=== PATIENT | female | born 1960 | race Caucasian/White ===

== ENCOUNTER 2016-10-13 09:50 | Emergency (ER) | payer BC ==
[~2016-10-13] VITALS: Ht 175.3 cm; Wt 80.7 kg
[2016-10-13 09:50] VITALS: BP 122/74; PULSE 58; RESP 15; TEMP 97.2; O2SAT 99
--- NOTE | 2016-10-13 09:50 | NUR ---
Pt to bed 8, placed in gown for evaluation
--- NOTE | 2016-10-13 10:05 | NUR ---
Recieved report from MICHAEL Claudio via [facility] method.Upon assessment, patient awake and alert x 4, facial grimacing, guarding right upper extermity with chief complaint of 9/10 throbing pain.Patient states she slipped on wet floor at home, did not hit her head on the floor.Patient can move extermities with pain. Addendum: 10/13/16 at 1046 by JEAN-PAUL Correction: Patient CAN NOT lift right upper extermity.
--- NOTE | 2016-10-13 10:10 | NUR ---
Dr. Martinez at bedside, examining patient.
[2016-10-13] MEDS ORDERED: MORPHINE 2 MG/ML INJ. SYRINGE IM ONE (10:15)
[2016-10-13] MEDS ORDERED: KETOROLAC TROMETHAMINE 60 MG/2 ML VIAL IM ONE (10:15)
--- NOTE | 2016-10-13 10:31 | NUR ---
staff nuclear medicine technologist at beside.Patient tolerating procedure.
--- NOTE | 2016-10-13 10:57 | NUR ---
process controls technician at bedside for wide angle view.Patient tolerating procedure.
--- NOTE | 2016-10-13 10:58 | NUR ---
Patient placed in right arm sling.Provided patient with education and paperwork.Patient verbalized understanding.
--- NOTE | 2016-10-13 11:02 | NUR ---
Dr. Dickerson on phone speaking with Dr. Drake regarding fx.
[2016-10-13 11:16] LABS: BASOPHILS # (AUTO) 0.1 K/uL (0.0-0.2); BASOPHILS % (AUTO) 1.4 % (0.0-2.0); EOSINOPHILS # (AUTO) 0.1 K/uL (0.0-0.4); EOSINOPHILS % (AUTO) 1.6 % (0.0-4.0); HEMATOCRIT 37.9 % (36-48); LYMPHOCYTES # (AUTO) 0.8 K/uL (1.0-5.5); LYMPHOCYTES % (AUTO) 17.7 % (20.5-51.5); MEAN CORPUSCULAR HEMOGLOBIN 30 pg (27-31); MEAN CORPUSCULAR HGB CONC 34 % (32-36); MEAN CORPUSCULAR VOLUME 88 fL (79.0-98.0); MONOCYTES # (AUTO) 0.3 K/uL (0.0-1.0); MONOCYTES % (AUTO) 7.2 % (1.7-9.3); NEUTROPHILS # (AUTO) 3.4 K/uL (1.8-7.7); NEUTROPHILS % (AUTO) 72.1 % (40.0-70.0); PLATELET COUNT (AUTO) 167 K/uL (130-430); RED BLOOD CELL COUNT(AUTO) 4.31 MIL/uL (4.2-6.2); RED CELL DISTRIBUTION WIDTH 12.7 % (9.0-15.0); WHITE BLOOD COUNT (AUTO) 4.7 K/uL (4.8-10.8)
[2016-10-13 11:27] LABS: CALCIUM 8.4 mg/dL (8.4-11.0); CREATININE 0.87 mg/dL (0.55-1.30); POTASSIUM 3.7 mmol/L (3.5-5.1); PROTHROMBIN TIME 10.9 SECS (9.5-12.5)
[2016-10-13] MEDS ORDERED: MORPHINE 4 MG/ML INJ. SYRINGE IM ONE (11:30)
[2016-10-13 11:32] LABS: ALBUMIN 3.8 g/dL (3.4-4.8); TOTAL BILIRUBIN 0.4 mg/dL (0.0-1.0)
--- NOTE | 2016-10-13 11:50 | NUR ---
Medicated per MD orders.Pt tolerated procdure.
[2016-10-13 12:30] VITALS: BP 128/60; PULSE 62; RESP 16; TEMP 98.2; O2SAT 100
--- NOTE | 2016-10-13 12:30 | NUR ---
Pt discharged via wheelchair.No signs of distress, all discharge paper work signed.Patient verbalized understanding of discharge instruction.
== END 2016-10-13 12:30 | disposition home or self-care (01) ==
LOC: SED 09:50
DX: S42.291A Other displaced fracture of upper end of right humerus, initial encounter for closed fracture (principal); R03.0 Elevated blood-pressure reading, without diagnosis of hypertension; W01.0XXA Fall on same level from slipping, tripping and stumbling without subsequent striking against object, initial encounter; Y93.89 Activity, other specified; Y92.89 Other specified places as the place of occurrence of the external cause; Y99.8 Other external cause status
CPT/HCPCS: 36415; 73020; 73030; 73080; 80053; 85025; 85610; 85730; 96372; 99285; J1885; J2270 ×2